=== PATIENT | male | born 1965 | race Caucasian/White ===

== ENCOUNTER → 2021-01-17 07:36 | Outpatient (CLI) | payer BC, SELFPAY ==
[2021-01-17 08:51] LABS: ALB/GLOB Ratio 1.1 RATIO (0.9-2.4); AST(SGOT) 20 U/L (15-37); Alanine Aminotransfer ALT/SGPT 31 U/L (16-61); Albumin, Serum 3.6 g/dL (3.2-5.0); Alkaline Phosphatase 73 U/L (45-117); Anion Gap 8 (5-15); BUN 19 mg/dL (7-18); BUN/Creat Ratio 18.6 RATIO (10-20); Calcium,Total 8.5 mg/dL (8.5-10.1); Chloride 107 mmol/L (98-107); Cholesterol 183 mg/dL (200); Creatinine, Serum 1.02 mg/dL (0.70-1.30); EST Glomerular Filtration Rate 80 mL/min (>60); Est Glom Filt Rate - Afr Amer 97 mL/min (>60); Globulin 3.4 g/dL (2.2-4.2); Glucose 97 mg/dL (74-106); High Density Lipoprotein 55 mg/dL; Sodium Level 139 mmol/L (136-145); Triglycerides 118 mg/dL; Very Low Density Lipoprotein 24 mg/dL (5-40)
== END ==
DX: E78.00 Pure hypercholesterolemia, unspecified (principal)
CPT/HCPCS: 36415; 80053; 80061

== ENCOUNTER 2021-04-11 14:30 | Outpatient (CLI) | payer BC, SELFPAY ==
[2021-04-11] MEDS: 0.9% Saline Lock 10 ML Syringe IV ×2 (14:45→15:34)
[2021-04-11 14:51] VITALS: BP 122/84; PULSE 77; RESP 16; TEMP 36.7; O2SAT 96; BMI 32.3
[2021-04-11 15:28] VITALS: BP 116/80; PULSE 71; RESP 16; TEMP 36.7; O2SAT 99
[2021-04-11 16:38] VITALS: BP 125/87; PULSE 78; RESP 16; TEMP 36.5; O2SAT 98
== END 2021-04-11 16:39 | disposition home or self-care (01) ==
LOC: ICUOUT 14:30 → MS2 14:31
PROVIDERS: Referring Provider Nurse Practitioner Acute Care; Visit Provider Nurse Practitioner Acute Care
DX: Z23 Encounter for immunization (principal); U07.1 COVID-19
CPT/HCPCS: J7050; M0243; A4216; Q0244

== ENCOUNTER → 2021-09-15 07:40 | Outpatient (CLI) | payer BC, SELFPAY ==
[2021-09-15 08:15] LABS: Absolute Lymphocyte Count 2.44 X10^3/uL (0.83-4.51); Absolute Neutrophil Count 3.5 X10^3/uL (2.0-7.7); Basophil# 0.06 X10^3/uL; Basophil% 0.9 % (0-1); Eosinophil# 0.18 X10^3/uL; Eosinophils% 2.6 % (0-5); Hematocrit 45.2 % (40-54); Hemoglobin 15.7 g/dL (13.0-16.5); Lymphocyte # 2.44 X10^3/ul (0.83-4.51); Lymphocyte % 35.3 % (19-41); Mean Corp Hgb Conc 34.7 g/dL (32-36); Mean Corpuscular Hgb 29.8 pg (27.0-32.0); Mean Corpuscular Volume 85.9 fL (80-94); Mean Platelet Vol. 9.8 fl (6.2-12.0); Monocyte# 0.68 X10^3/uL; Monocyte% 9.8 % (0-10); NRBC Flagged by Analyzer 0 % (0-5); Neutrophil # 3.53 X10^3/uL (2.7-7.7); Neutrophil % 51.1 % (47-70); Platelet Count 299 K/mm3 (150-450); RBC Distribution Width CV 12.2 % (11.6-14.6); RBC Distribution Width SD 38.4 fl (35.1-43.9); Red Blood Count 5.26 M/mm3 (4.6-6.2); White Blood Count 6.9 K/mm3 (4.4-11.0)
[2021-09-15 08:47] LABS: Vitamin B12 492 pg/mL (211-911); Vitamin D,25 Hydroxy 25.9 ng/mL
[2021-09-15 08:51] LABS: AST(SGOT) 17 U/L (15-37); Alanine Aminotransfer ALT/SGPT 40 U/L (16-61); Albumin, Serum 3.7 g/dL (3.2-5.0); Alkaline Phosphatase 79 U/L (45-117); BUN 18 mg/dL (7-18); BUN/Creat Ratio 15.7 RATIO (10-20); Calcium,Total 8.9 mg/dL (8.5-10.1); Chloride 108 mmol/L (98-107); Cholesterol 165 mg/dL (200); Creatinine, Serum 1.15 mg/dL (0.70-1.30); EST Glomerular Filtration Rate 70 mL/min (>60); Est Glom Filt Rate - Afr Amer 84 mL/min (>60); Globulin 3.8 g/dL (2.2-4.2); Glucose 101 mg/dL (74-106); Potassium 4.1 mmol/L (3.5-5.1); Protein, Total 7.5 g/dL (6.4-8.2); Sodium Level 140 mmol/L (136-145); Triglycerides 70 mg/dL
[2021-09-15 08:52] LABS: Anion Gap 5 (5-15); High Density Lipoprotein 54 mg/dL; PSA,Total- Diagnostic 0.38 ng/mL (0.0-4.0); Thyroid Stim Hormone (TSH) 1.73 uIU/mL (0.358-3.74); Very Low Density Lipoprotein 14 mg/dL (5-40)
== END ==
DX: E78.00 Pure hypercholesterolemia, unspecified (principal); G47.33 Obstructive sleep apnea (adult) (pediatric); N40.1 Benign prostatic hyperplasia with lower urinary tract symptoms; E53.8 Deficiency of other specified B group vitamins; E55.9 Vitamin D deficiency, unspecified; R73.01 Impaired fasting glucose
CPT/HCPCS: 36415; 80053; 80061; 82306; 82607; 83036; 84153; 84443; 85025

== ENCOUNTER → 2021-11-17 13:04 | Outpatient (CLI) | payer BC, SELFPAY ==
[2021-11-17 13:35] LABS: Absolute Lymphocyte Count 1.99 X10^3/uL (0.83-4.51); Absolute Neutrophil Count 4.8 X10^3/uL (2.0-7.7); Basophil# 0.04 X10^3/uL; Basophil% 0.5 % (0-1); Eosinophils% 1.3 % (0-5); Hematocrit 45.9 % (40-54); Lymphocyte # 1.99 X10^3/ul (0.83-4.51); Lymphocyte % 25.8 % (19-41); Mean Corp Hgb Conc 34.9 g/dL (32-36); Mean Platelet Vol. 9.6 fl (6.2-12.0); Monocyte# 0.72 X10^3/uL; Monocyte% 9.4 % (0-10); NRBC Flagged by Analyzer 0 % (0-5); Neutrophil # 4.83 X10^3/uL (2.7-7.7); Neutrophil % 62.7 % (47-70); Platelet Count 301 K/mm3 (150-450); RBC Distribution Width CV 12.2 % (11.6-14.6); RBC Distribution Width SD 38.1 fl (35.1-43.9); Red Blood Count 5.34 M/mm3 (4.6-6.2); White Blood Count 7.7 K/mm3 (4.4-11.0)
[2021-11-17 13:58] LABS: Troponin-I HS 3 pg/mL (3.0-78.0)
== END ==
DX: R07.9 Chest pain, unspecified (principal); J01.90 Acute sinusitis, unspecified; J40 Bronchitis, not specified as acute or chronic
CPT/HCPCS: 36415; 84484; 85025

== ENCOUNTER → 2021-12-06 | Outpatient (CLI) | payer BC, SELFPAY ==
[2021-12-06 10:43] LABS: Vitamin D,25 Hydroxy 25.8 ng/mL
== END | disposition home or self-care (01) ==
LOC: LAB 09:34
PROVIDERS: Referring Provider Specialist; Visit Provider Specialist
DX: E55.9 Vitamin D deficiency, unspecified (principal)
CPT/HCPCS: 36415; 82306

== ENCOUNTER → 2021-12-20 | Outpatient (CLI) | payer BC, SELFPAY ==
--- NOTE | 2021-12-20 13:43 | STE_ITS ---
Reason For Study: CHEST PAIN Stress Results Protocol: [facility] Protocol Maximum Predicted HR: 164 bpm Target HR: 139 bpm % Maximum Predicted HR: 101 % DurationHeart Rate Stage (mm:ss) (bpm) BP Comment BASELINE 68 112/82 STAGE 1 3:00 106 118/80 STAGE 2 3:00 122 122/74 STAGE 3 3:00 146 142/70 STAGE 4 1:40 166 / SLIGHT SOB, NO CHEST PAIN RECOVERY 104 114/80 Stress Duration: 10:40 mm:ss Maximum Stress HR: 166 bpm Baseline Echocardiogram Findings Stress Echo Wall motion Data Resting WM Intermediate WM Stress WM ECHO/Stress Test Echo w/o Contrast Interpretation Summary Stress echocardiogram. 56-year-old man with a history of chest pain. Resting EKG demonstrates normal sinus rhythm with a rate of 69 bpm resting bloo d pressure is 112/82 mmHg. The patient exercised according to regular [facility] protocol for total durat ion of 10 minutes and 40 seconds. Patient completed 1 minute and 40 seconds into stage IV of the Bruc e protocol. The maximum heart rate attained was 166 bpm which was 101% of max impact at heart r ate maximum workload was 13.7 metabolic equivalents. At rest there were no ST or T wave changes note d to suggest ischemia and at peak exercise upsloping ST changes were noted with did not meet the crit eria for ischemia. No clinical angina was noted. The peak blood pressure was 142/70 mmHg which was a good blood pressure response to exercise. No chest pain was noted. Stress echocardiogram. The resting echocardiogram demonstrated globally reduced left ventricular systo lic function estimated at approximately 25%. At peak exercise there was improvement in all w alls with reduction in left ventricular cavity size with ejection fraction improving to approximate ly 55%. No wall motion abnormalities are noted to suggest ischemia. Conclusion: Exercise stress test with no EKG criteria for ischemia at a good workload. Good functional capacity. Resting cardiomyopathy present. With estimated ejection fraction of 25% global. No ischemia noted. Ordering Physician: ETELVINA CRUZ Referring Physician: WINSTON CRUZ Performed By: Ki Caruso RCS
== END | disposition home or self-care (01) ==
LOC: CVS 13:40
DX: R07.9 Chest pain, unspecified (principal)
CPT/HCPCS: 93017; 93350

== ENCOUNTER 2022-02-13 06:41 | Day surgery (SDC) | payer BC, SELFPAY ==
--- NOTE | 2022-01-22 10:54 | RAD_ITS ---
STUDY: X-RAY CHEST REASON FOR EXAM: Male, 56 years old. Chest pain. TECHNIQUE: Frontal and lateral views of the chest. COMPARISON: None. FINDINGS: The lungs are clear and expanded. There is no demonstrated pleural abnormality. Normal size heart. Normal mediastinum and pedro luis. Normal visualized pulmonary arteries. Normal visualized aortic arch and descending thoracic aorta. Normal visualized thoracic spine. Normal visualized ribs, clavicles, and shoulders. There is no demonstrated abnormality of the visualized soft tissue structures of the upper abdomen. RAD/Chest PA and Lateral IMPRESSION: Normal x-ray examination of the chest. Electronically Signed: Luigi Graham MD at 12:21 EDT ,
[2022-01-22 11:16] LABS: Absolute Lymphocyte Count 2.43 X10^3/uL (0.83-4.51); Absolute Neutrophil Count 3.5 X10^3/uL (2.0-7.7); Basophil# 0.05 X10^3/uL; Basophil% 0.7 % (0-1); Eosinophil# 0.17 X10^3/uL; Eosinophils% 2.5 % (0-5); Hematocrit 45.9 % (40-54); Hemoglobin 15.5 g/dL (13.0-16.5); Lymphocyte # 2.43 X10^3/ul (0.83-4.51); Lymphocyte % 35.8 % (19-41); Mean Corp Hgb Conc 33.8 g/dL (32-36); Mean Corpuscular Hgb 29.8 pg (27.0-32.0); Mean Corpuscular Volume 88.1 fL (80-94); Mean Platelet Vol. 9.5 fl (6.2-12.0); Monocyte# 0.59 X10^3/uL; Monocyte% 8.7 % (0-10); NRBC Flagged by Analyzer 0 % (0-5); Neutrophil # 3.53 X10^3/uL (2.7-7.7); Platelet Count 321 K/mm3 (150-450); RBC Distribution Width CV 12.1 % (11.6-14.6); RBC Distribution Width SD 39.2 fl (35.1-43.9); Red Blood Count 5.21 M/mm3 (4.6-6.2); White Blood Count 6.8 K/mm3 (4.4-11.0)
[2022-01-22 11:59] LABS: AST(SGOT) 14 U/L (15-37); Alanine Aminotransfer ALT/SGPT 30 U/L (16-61); Albumin, Serum 3.8 g/dL (3.2-5.0); Alkaline Phosphatase 75 U/L (45-117); Anion Gap 4 (5-15); BUN 14 mg/dL (7-18); BUN/Creat Ratio 11.9 RATIO (10-20); Bilirubin, Direct 0.19 mg/dL (0.00-0.30); Calcium,Total 9.1 mg/dL (8.5-10.1); Chloride 106 mmol/L (98-107); Cholesterol 189 mg/dL (200); Creatinine, Serum 1.18 mg/dL (0.70-1.30); EST Glomerular Filtration Rate 68 mL/min (>60); Est Glom Filt Rate - Afr Amer 82 mL/min (>60); Globulin 3.7 g/dL (2.2-4.2); Glucose 94 mg/dL (74-106); High Density Lipoprotein 60 mg/dL; Potassium 4.2 mmol/L (3.5-5.1); Protein, Total 7.5 g/dL (6.4-8.2); Sodium Level 139 mmol/L (136-145); Thyroid Stim Hormone (TSH) 1.32 uIU/mL (0.358-3.74); Triglycerides 185 mg/dL; Very Low Density Lipoprotein 37 mg/dL (5-40)
[2022-02-12 11:15] VITALS: BMI 34.7
--- NOTE | 2022-02-13 08:22 | CL.D_ITS ---
Patient Name: CARLOZ ARIZMENDI Study Date: 02/13/2022 Performing: Gerald Norman MD Ht: 70.07 inches 178 cm : 1965 Wt: 242.51 lbs 110 kg Age: 57 Gender: male BSA: 2.27 PROCEDURE(S) PERFORMED DC01-(05962)LHC/COR/LV CLINICAL PROFILE AND INDICATIONS Indications: Cardiomyopathy Heart Failure: None Stress/Imaging Stress Echocardiogram: Yes Result: NegativeStress Echocardiogram: Negative CAD Presentations: Symptom unlikely to be ischemic. CONCLUSIONS Non obstructive coronary arteries Normal LV size, wall motion,and systolic function RECOMMENDATIONS Current therapy will be continued. 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 DESCRIPTION OF PROCEDURE The patient arrived to the procedure lab. The risks and benefits of the procedure as well as a full d escription of our services here and current unavailability of surgical backup were fully explained to the patient and/or their significant other prior to the catheterization. The Timeout was completed, verifying the correct patient and procedure. The patient's procedural site was prepped and draped in the usual fashion. Local anesthetic was given subcutaneously to right radial region with Lidocaine 2% . Using a modified Seldinger technique, arterial access was obtained via the right radial artery, a 6 Fr sheath was inserted. Left Coronary Artery selective angiography was performed in multiple views u sing a 5 Fr. 4.0 [place] catheter. Right Coronary Artery selective angiography was then performed in mu ltiple views using a 5 Fr. 4.0 [place] catheter. Left Ventriculography was performed in THORNE projection using a 5 Fr. Pig[place] catheter. LV to AO pullback pressures were then recorded.The arterial sheath was pulled and a TR Band was applied for hemostasis CORONARY ANGIOGRAPHY DOMINANCE: Left Dominant LEFT HEART ASSESSMENT Left Ventricular Ejection Fraction: by LV Gram 55 % Normal LV wall motion Normal Left Ventricular systolic function LEFT MAIN: Angiographically normal LEFT ANTERIOR DESCENDING ARTERY: Angiographically normal CIRCUMFLEX ARTERY: No significant disease noted RAMUS: No significant disease noted RIGHT CORONARY ARTERY: MID RCA: Mild luminal irregularities less than 30% COMPLICATIONS No Complications PROCEDURE MEDICATIONS Fentanyl 50 mcg IV Versed 1 mg IV Versed 1 mg IV Oxygen: 2 L/min via nasal cannula Heparin given IA 02/13/2022 07:50:48 Verapamil 2.5mg, Ntg 100mcgs, 3000 units of Heparin given IA 02/13/2022 07:50:48 SUMMARY OF HEMODYNAMIC DATA Time AIR REST ECG 07:07:45 Art 102/59 (71) 07:54:52 AO 102/71 (86) SA 08:05:13 LV 91/15, 16 08:10:20 LV 93/15, 18 08:10:27 LV 82/21, 22 08:11:16 LVp 77/15, 16 08:11:21 AOp 99/67 (81) 08:11:26 Signed By Gerald Norman MD On 02/13/2022 08:21:15 Gerald Norman MD
== END 2022-02-13 10:30 | disposition home or self-care (01) ==
LOC: CLSP 06:42
PROVIDERS: Referring Provider Internal Medicine Cardiovascular Disease; Visit Provider Internal Medicine Cardiovascular Disease
DX: I42.8 Other cardiomyopathies (principal); E78.5 Hyperlipidemia, unspecified; I10 Essential (primary) hypertension; J45.909 Unspecified asthma, uncomplicated; N40.1 Benign prostatic hyperplasia with lower urinary tract symptoms; K21.9 Gastro-esophageal reflux disease without esophagitis; E55.9 Vitamin D deficiency, unspecified; G47.33 Obstructive sleep apnea (adult) (pediatric); Z79.82 Long term (current) use of aspirin; Z79.899 Other long term (current) drug therapy; Z86.718 Personal history of other venous thrombosis and embolism
CPT/HCPCS: 36415; 71046; 80048; 80061; 80076; 84443; 85025; 93458; 99152; 99153; J7030; C1769; C1894; Q9967